=== PATIENT | female | born 1990 | race Hispanic/Latino ===

== ENCOUNTER → 2020-01-18 | Outpatient (CLI) | payer OTHER ==
--- NOTE | 2020-01-21 08:35 | RAD ---
EXAM DESCRIPTION: XR ABDOMEN 1 VIEW (KUB) CLINICAL HISTORY: ABD PAIN COMPARISON: None Available. TECHNIQUE: KUB FINDINGS: There is an unremarkable bowel gas pattern. No obstruction or ileus is evident. Right upper quadrant surgical clips presumably from prior cholecystectomy noted. No soft tissue masses or unusual calcifications are noted. Age appropriate bony degenerative changes are present. IMPRESSION: Normal examination Electronically signed by: Alvino Feldman MD 01/21/2020 8:34 AM [employer]TER
== END ==
LOC: RAD 16:42
PROVIDERS: ATTEND Nurse Practitioner Family
DX: R10.829 Rebound abdominal tenderness, unspecified site (principal)